=== PATIENT | male | born 1995 | race Caucasian/White ===

== ENCOUNTER 2022-04-23 09:10 | Outpatient (CLI) | payer OTHER, SELFPAY ==
[2022-04-23 09:43] LABS: Hematocrit 44.7 % (37.0-53.0); Hemoglobin* 15.4 gm/dL (13.5-17.5); Mean Corpuscular HGB Conc 35 gm/dL (32-36); Mean Corpuscular Hemoglobin 31 pg (26-34); Mean Corpuscular Volume 89 fL (80-100); Platelet Count* 258 K/uL (140-440); Red Blood Count 5.02 m/uL (4.30-5.90); White Blood Count* 5.46 K/uL (4.50-11.00)
[2022-04-23 09:45] LABS: Slide Review Reflex No
[2022-04-23 14:15] LABS: Chloride* 104 mmol/L (96-114); Sodium* 139 mmol/L (135-149)
[2022-04-23 14:16] LABS: Potassium* 4.9 mmol/L (3.6-5.1)
[2022-04-23 14:18] LABS: Alkaline Phosphatase* 94 U/L (40-150); Aspartate Amino Transferase* 34 U/L (12-35); Bilirubin Total* 0.7 mg/dL (0.1-1.5); Blood Urea Nitrogen* 21 mg/dL (5-24); Carbon Dioxide* 25 mmol/L (20-32); Cholesterol* 178 mg/dL (90-199); Creatinine* 0.9 mg/dL (0.5-1.5); Estimated Glomerular Filt Rate 121 ml/min; Glucose* 100 mg/dL (60-115); Total Protein* 8.1 g/dL (6.0-8.3); Triglycerides* 39 mg/dL (40-149)
[2022-04-23 14:19] LABS: Alanine Aminotransferase* 33 U/L (4-50); Calcium* 9.9 mg/dL (8.4-10.6); HDL Cholesterol* 57 mg/dL (>=40); LDL Cholesterol Calculated 113 mg/dL (<100)
== END 2022-04-23 09:11 | disposition home or self-care (01) ==
PROVIDERS: PCP Physician Assistant Medical; Visit Provider Physician Assistant Medical
DX: Z00.00 Encounter for general adult medical examination without abnormal findings (principal); Z13.6 Encounter for screening for cardiovascular disorders; Z13.29 Encounter for screening for other suspected endocrine disorder
CPT/HCPCS: 80053; 80061; 84443; 85027

== ENCOUNTER 2022-08-29 21:12 | Outpatient (CLI) | payer OTHER, SELFPAY ==
--- NOTE | 2022-09-03 14:40 | W.PM.SLEEP ---
Sleep Study Details Details Interpreting Provider: Galen Gaston MD Date of Sleep Study: 08/29/22 Sleep Study Details: STUDY TYPE:? Home ? BMI:? 34.2 ORDERING PROVIDER:? Get INDICATION:? Concerns about sleep apnea ? SLEEP SUMMARY:? 244 minutes monitored RESPIRATORY SUMMARY:? AHI 5.7, supine AHI 6.8, left lateral 3.9 Low oxygen 86 0.9% of study oxygen less than 90% Snoring 19.9% PERIODIC LIMB MOVEMENTS OF SLEEP:? Not recorded CARDIAC:? 49-100, mean 64 IMPRESSION:? Mild obstructive sleep apnea RECOMMENDATION: If patient has daytime hypersomnolence treatment options would include CPAP AutoSet 4-17, dental appliance and/or airway expansion surgery.
== END 2022-08-29 21:13 | disposition home or self-care (01) ==
LOC: SLEEP 21:13
PROVIDERS: PCP Physician Assistant Medical; Visit Provider Otolaryngology
DX: G47.33 Obstructive sleep apnea (adult) (pediatric) (principal)
CPT/HCPCS: 95806

== ENCOUNTER 2024-03-02 15:15 | Outpatient (RCR) | payer OTHER, SELFPAY | END 2024-06-30 23:59 | disposition home or self-care (01) | PROVIDERS: PCP Physician Assistant Medical; Visit Provider Family Medicine | DX: M54.50 Low back pain, unspecified (principal); G89.29 Other chronic pain; R29.898 Other symptoms and signs involving the musculoskeletal system; R26.89 Other abnormalities of gait and mobility; Z51.89 Encounter for other specified aftercare | CPT/HCPCS: 97110; 97162 ==

== ENCOUNTER 2024-08-06 20:42 | Emergency (ER) | payer BC, SELFPAY ==
--- OUTSIDE RECORDS SUMMARY | 2024-08-06 20:44 | XMS_ITS | Continuity of Care Document ---
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 It does not include entries that were removed or entered in error. Problem Status Onset Date Problem Type Date of Resolution Comments Source Pain in left knee Active 8 Condition DoD Encounter for other administrative examinations Inactive 7 Condition [facility] Erectile Dysfunction ([facility] [id number]) Active Condition [facility] Low Back Pain ([facility] [id number]) Active Condition [facility] visit for: examination of subpopulation Active Condition [facility] Rehabilitation Active Condition DoD pitted keratolysis Active Condition DoD Ankle Swelling (on exam) Active Condition [facility] ankle joint pain Active Condition [facility] ankle sprain Active Condition DoD Allergies, Adverse Reactions, Alerts Combined list of allergies from Department of Defense and Veterans Affairs facilities. It does not include entries that were removed or entered in error. Substance Category Reaction Severity Reaction type Status Date Reported Comments Source No Known Allergies Drug allergy (disorder) active 08/05/2015 [facility] Immunizations Combined list of available immunizations from the Department of Defense and Veterans Affairs facilities. Immunization Series Date Given Administered By Site Reaction Lot Number CVX Code Drug Gas Systems Worker Status Comments Source Influenza, seasonal, injectable 0 2017 UNK 141 Unknown (UNK) comple t ed Influenza , seasonal, injectabl e DoD measles and rubella virus vaccine 0 2016 04 () Not Given measles and rubella virus vaccine [facility] influenza, injectable, quadrivalent, contains preservative 1 2016 EUGENE JULIEN [id number] 158 SmithKline (SKB) complet ed influenza , injectabl e, quadrival ent, contains preservat keo DoD Influenza, injectable, Madin Orlando Canine Kidney, quadrivalent with preservative 0 2016 [id number] 186 SmithKline (SKB) complet ed Influenza , injectabl e, Madin Darcy Canine Kidney, quadrival ent with preservat keo [facility] typhoid Vi capsular polysaccharid e vaccine 1 2016 DINH ZHENG [id number] Sanofi Pasteur (PMC) complet ed typhoid Vi capsular polysacch aride vaccine DoD typhoid vaccine, parenteral, other than acetone-kille d, dried 2 2016 [id number] 41 [employer] ([facility]) complet ed typhoid vaccine, parentera l, other than acetone-k illed, dried DoD influenza, injectable, quadrivalent, contains preservative 1 2015 JACEY GUEVARA [id number] [facility] L[employer] (SKB) complet ed influenza , injectabl e, quadrival ent, contains preservat keo DoD Influenza, seasonal, injectable, preservative free 0 2014 UNK 140 CS [employer] (CSL) complet ed Influenza , seasonal, injectabl e, preservat keo free DoD influenza, live, intranasal, quadrivalent 1 2014 JUDE MEJIAS DO [id number] 149 Aud[employer]ence, Inc. (MED) complet ed influenza , live, intranasa l, quadrival ent DoD varicella virus vaccine 2 2014 CARMELO RDZ [id number] Transcribed (TRS) complet ed varicella virus vaccine DoD typhoid vaccine, unspecified formulation 0 2014 MEET VIVAS [id number] 91 Sanofi Pasteur (PMC) complet ed typhoid vaccine, unspecifi ed formulati on DoD typhoid Vi capsular polysaccharid e vaccine 1 2014 [id number] 101 Sanofi Pasteur (PMC) complet ed typhoid Vi capsular polysacch aride vaccine DoD hepatitis A and hepatitis B vaccine 3 2014 MEET VIVAS [id number] 104 Transcribed (TRS) complet ed hepatitis A and hepatitis B vaccine DoD influenza, live, intranasal, quadrivalent 1 2013 HYACINTH OWENS [id number] 149 [employer]ence, Inc. (MED) complet ed influenza , live, intranasa l, quadrival ent DoD measles and rubella virus vaccine 0 2013 04 () Not Given measles and rubella virus vaccine DoD yellow fever vaccine 0 2013 [id number] 37 Sanofi Pasteur (PMC) complet ed yellow fever vaccine DoD poliovirus vaccine, inactivated 0 2013 [id number] 10 Sanofi Pasteur (PMC) complet ed polioviru s vaccine, inactivat ed DoD hepatitis A and hepatitis B vaccine 2 2013 [id number] 104 SmithKline (SKB) complet ed hepatitis A and hepatitis B vaccine DoD varicella virus vaccine 1 2013 [id number] 21 Merck (MSD) complet ed varicella virus vaccine DoD TDAP 2013 115 complet ed [place] [facility] tetanus and diphtheria toxoids, adsorbed, preservative free, for adult use (2 Lf of tetanus toxoid and 2 Lf of diphtheria toxoid) 0 2013 [id number] 09 [employer]Kline (SKB) complet ed tetanus and diphtheri a toxoids, adsorbed, preservat keo free, for adult use (2 Lf of tetanus toxoid and 2 Lf of diphtheri a toxoid) DoD pneumococcal polysaccharid e vaccine, 23 valent 0 2013 [id number] 33 Merck (MSD) complet ed pneumococ ray polysacch aride vaccine, 23 valent DoD hepatitis A and hepatitis B vaccine 1 2013 [id number] 104 [employer]Kline (SKB) complet ed hepatitis A and hepatitis B vaccine DoD meningococcal polysaccharid e (groups A, C, Y and W-135) diphtheria toxoid conjugate vaccine (MCV4P) 0 2013 [id number] 114 Sanofi Pasteur (PMC) complet ed meningoco ccal polysacch aride (groups A, C, Y and W-135) diphtheri a toxoid conjugate vaccine (MCV4P) DoD influenza, injectable, quadrivalent, contains preservative 0 2013 [id number] 158 Sanofi Pasteur (PMC) complet ed influenza , injectabl e, quadrival ent, contains preservat keo DoD Adenovirus, type 4 and type 7, live, oral 0 2013 [id number] 143 [employer] (BRR) complet ed Adenoviru s, type 4 and type 7, live, oral DoD Encounters Combined list of: 1) Encounters from Department of Veterans Affairs facilities going back up to thelast 18 months. 2) Encounters from the Department of Defense facilities going back up to 280 months. Location Location Details Encounter Type Encounter Number Reason For Visit Attending Provider ADM Date DC Date Status Disposition Source [facility] D Recruit Processin g) OUTPATIENT [id number] Notes Entered by: LANDON QURESHI 23 Jan 2014 0937 ------- ------- ------- ------- -- krystin BRADLEY RAMIRES 01/23 Released w/o Limitations [facility]( CRD Recruit Process ing) [facility] D Optometry ) OUTPATIENT [id number] Notes Entered by: TERRY RAMSEY 26 Jan 2014 1341 ------- ------- ------- ------- -- recruit KAEL Jauregui 01/26 Released w/o Limitations [facility] Optomet ry) [facility] D Recruit Processin g) OUTPATIENT [id number] T6 VACCINE S ARAMIS, CHANDANA 02/05 Released w/o Limitations [facility]( CRD Recruit Process ing) [facility] D Sports Medicine) OUTPATIENT [id number] right ankle/b am STOCKTON, KACIE W 02/12 Released with Work/Duty Limitations [facility]( CRD Sports Medicin e) [facility] D Sports Medicine) OUTPATIENT [id number] atcbam STOCKTON, KACIE W 02/13 Released with Work/Duty Limitations [facility]( [facility]D Sports Medicin e) [facility] D Sports Medicine) OUTPATIENT [id number] atcbam STOCKTON, KACIE W 02/14 Released with Work/Duty Limitations [facility]( CRD Sports Medicin e) [facility] D Recruit Processin g) OUTPATIENT [id number] T22 VACCINE S ARAMIS, CHANDANA 02/23 Released w/o Limitations [facility]( CRD Recruit Process ing) [facility] D Recruit Processin g) OUTPATIENT [id number] [id number] VACCINE S ARAMIS, CHANDANA 03/27 Released w/o Limitations [facility]( CRD Recruit Process ing) [place] DON[place] Clark(31 ABC FP MHP) OUTPATIENT [id number] post FINN Olguin 04/19 Released w/o Limitations [facility] [place]31 ABC FP MHP) [facility] [place](52 ABC FP MHP) OUTPATIENT [id number] campbell JORGENSEN OLI B 05/02 Released w/o Limitations [facility] [place](52 ABC FP MHP) [facility]( [facility] [facility]) OUTPATIENT [id number] Notes Entered by: JOSE OWENS 20 Jun 2014 1338 ------- ------- ------- ------- -- DEEPALI HANLEY 06/20 Released w/o Limitations [facility]( [email or web address]( [place] [facility]) OUTPATIENT [id number] L knee pain SHONDA, KAPIL HEWITT 08/13 Released with Work/Duty Limitations [facility]( [email or web address]) [facility]) OUTPATIENT [id number] Notes Entered by: CARMELO DUFFY 16 Oct 2014 0943 ------- ------- ------- ------- -- MARY JANE Sullivan 10/16 Released w/o Limitations [facility]( [facility]) [facility] Team 1) OUTPATIENT [id number] Notes Entered by: Valdez MARINO 13 Dec 2014 1335 ------- ------- ------- ------- -- HUMERA Malone 12/13 Released w/o Limitations [facility]( [facility] Team 1) [facility]( [facility] [facility]) OUTPATIENT [id number] Notes Entered by: JAYLEN NEWMAN 19 Mar 2015 1421 ------- ------- ------- ------- -- pha-366 MADHU GRAHAM 03/19 Released w/o Limitations [facility]( [facility] [place] [facility]) [facility] OUT[facility] [id number] Notes Entered by: OLAYINKA DEL TORO 05 Aug 2015 0833 ------- ------- ------- ------- -- MARY JANE SULLIVAN 08/05 Released w/o Limitations [facility]( [facility]( [place] [facility]) OUTPATIENT [id number] MS/ [facility] HANNA BLACKBURN 08/20 Released w/o Limitations [facility]( [facility] [place] [facility]) [facility](He aring Conserv-B 65) OUTPATIENT [id number] annual TOLU GARCIA 01/19 Released w/o Limitations [facility]( Hearing Conserv -B65) [facility](Op tometry [facility]) OUTPATIENT [id number] routine eye exam, pt needs new glasses BETITO BAUGH 01/28 Released w/o Limitations [facility]( Optomet ry [facility]) [facility]([place] - Med Home) OUTPATIENT [id number] [facility] / HANNA LAYTON 03/25 Released w/o Limitations [facility]( MAG 29 - Med Home) [facility]([place] - Med Home) OUTPATIENT [id number] Notes Entered by: JACEY GUEVARA 02 Jun 2016 1542 ------- ------- ------- ------- -- ILIR AYALA 06/02 Released w/o Limitations [facility]( MAG 29 - Med Home) [facility]([place] - [facility]) OUTPATIENT [id number]/ sore throat/ cough SHIRARUSTY WERNER 11/06 Sick at Home/Quarter s [facility]( MAG 29 - Med Home) [facility] ) OUTPATIENT [id number] 12/09/19 17 PRE/RIKIALIA SINGH 12/09 Released w/o Limitations [facility]( [facility] ent [facility]) [facility]( [facility] [facility]) OUTPATIENT [id number] Notes Entered by: DINH ZHENG 11 Dec 2016 1437 ------- ------- ------- ------- -- AB LOREDO 12/11 Released w/o Limitations [facility]( [facility] [place] [facility]) [facility](He [facility]-B 65) OUTPATIENT [id number] Notes Entered by: SOULEYMANE GARCIA 01 Jan 2017 1311 ------- ------- ------- ------- -- PRE-DEP TOLU PADILLA 01/01 Released w/o Limitations [facility]( Hearing Conserv -B65) Theater Facility OUTPATIENT [id number] Theater Provider 03/22 Released w/o Limitations Theater Facilit y [facility]([place] - Med Home) OUTPATIENT [id number]/ er follow up/elbo w injury JOSE MANUEL WALLACE 07/12 Released with Work/Duty Limitations [facility]( MAG 29 - Med Home) [facility](Or thopedic Clinic) OUTPATIENT [id number] emergen cy room visit TOLU GRESHAM 07/13 Released with Work/Duty Limitations [facility]( Orthope dic Clinic) [facility]( [facility] [facility]) OUTPATIENT [id number] Notes Entered by: LUNA QURESHI 13 Jul 2017 1053 ------- ------- ------- ------- -- HM-366 / FLU SORAYA CARROLL 07/13 Released w/o Limitations [facility]( [email or web address]) [facility]( [facility] [facility]) OUTPATIENT [id number] Notes Entered by: RALPH BRODY 21 Jul 2017 0653 ------- ------- ------- ------- -- [facility]-366 stitch CARMEN Cantor 07/21 Released w/o Limitations [facility]( [facility] [place] [facility]) [facility]([place] [facility]) OUTPATIENT [id number] [facility]-366 / med TIARA Vo 07/22 Released w/o Limitations [facility]( [facility] - Med [place]) [facility]( [place] [facility]) OUTPATIENT [id number]/ sore throat/ cough/6 [id number] SORAYA CARROLL 12/01 Sick at Home/Quarter s [facility]( [email or web address]) [facility]-B 65) OUTPATIENT [id number] Notes Entered by: SAKINA CAMARGO 04 Jan 2018 0830 ------- ------- ------- ------- -- annual MADALYN VIRGEN 01/04 Released w/o Limitations [facility]( Hearing [facility] -B65) [facility](Sp orts Medicine- [facility]) OUTPATIENT [id number] LEFT KNEE PAIN JUDE TELLO 03/01 Released w/o Limitations [facility]( Sports Medicin e- [facility]) [facility](Sp orts Medicine- [facility]) OUTPATIENT [id number] f/u knee xray JUDE TELLO 03/03 Released w/o Limitations [facility]( Sports Medicin e- [facility]) [facility]) OUTPATIENT [id number]/ MARLEEN TROY 03/31 Released w/o Limitations [facility]( [facility] - [facility]) [facility]) OUTPATIENT [id number] Notes Entered by: Valdez HOUSTON 18 Aug 2018 0811 ------- ------- ------- ------- -- Term MARGIE LOVE 08/18 Released w/o Limitations [facility]( [facility] - Med [place]) OUTPATIENT [id number]/ APR/651 .[phone] 45 EUSEBIO ARMSTRONG 08/19 Released w/o Limitations [facility]( [facility]) [facility](Op tometry [facility]) OUTPATIENT [id number] eye exam BETITO BAUGH 10/11 Released w/o Limitations [facility]( Optomet ry [facility]) Procedures Combined list of: 1) Procedures from Department of Veterans Affairs facilities going back up to thelast 18 months, not all VA non-surgical procedures are included; 2) All procedures from the Department of Defense facilities. Procedure Procedure Type Code Date Perfomer Comments Sourc e INJECTION, PENICILLIN G BENZATHINE, 100,000 UNITS 2013 DoD IMMUNIZATION ADMINISTRATION (INCLUDES PERCUTANEOUS, INTRADERMAL, SUBCUTANEOUS, OR INTRAMUSCULAR INJECTIONS); 1 VACCINE (SINGLE OR COMBINATION VACCINE/TOXOID) 2013 DoD COMPRESSION BANDAGE, ROLL 2013 DoD COMPRESSION BANDAGE, ROLL 2013 DoD COMPRESSION BANDAGE, ROLL 2013 DoD IMMUNIZATION ADMINISTRATION (INCLUDES PERCUTANEOUS, INTRADERMAL, SUBCUTANEOUS, OR INTRAMUSCULAR INJECTIONS); 1 VACCINE (SINGLE OR COMBINATION VACCINE/TOXOID) 2013 [facility] FITTING OF SPECTACLES, EXCEPT FOR APHAKIA; MONOFOCAL 2013 [facility] THERAPEUTIC, PROPHYLACTIC, OR DIAGNOSTIC INJECTION (SPECIFY SUBSTANCE OR DRUG); SUBCUTANEOUS OR INTRAMUSCULAR 2013 [facility] OPHTHALMOLOGICAL SERVICES: MEDICAL EXAMINATION AND EVALUATION WITH INITIATION OF DIAGNOSTIC AND TREATMENT PROGRAM; COMPREHENSIVE, NEW PATIENT, 1 OR MORE VISITS 2018 [facility] HEALTH&BEHAV ASSESSMENT (EG, HEALTH-FOC CLINICAL INTERVIEW, BEHAVIORAL OBSERVATIONS, PSYCHOPHYSICOLOGICAL MONITOR, HEALTH-ORIENT QUESTIONNAIRES), EA 15 MIN [id number] W THE PATIENT; INIT ASSESSMENT 2018 [facility] PATIENT EDUCATION, NOT OTHERWISE CLASSIFIED, NON-PHYSICIAN PROVIDER, INDIVIDUAL, PER SESSION 2018 [facility] SCREENING TEST OF VISUAL ACUITY, QUANTITATIVE, BILATERAL 2017 [facility] RE-EVAL,ATHLETIC TRAINING ESTAB PLAN OF CARE REQ:ASSES,CUR FUNC STAT WHEN DOC CHANGE;REV PLAN OF CARE,STAND,ASSESS INSTR &/RAMSEY ASSESS,FUNC OUTCOME W UPDATE,20 MIN UYAR-[id number] W THE PATIENT &/FAMILY 2017 [facility] PURE TONE AUDIOMETRY (THRESHOLD); AIR ONLY 2017 [facility] INFLUENZA VIRUS VACCINE, QUADRIVALENT (IIV4), SPLIT VIRUS, 0.5 ML DOSAGE, FOR INTRAMUSCULAR USE 2016 [facility] SIMPLE REPAIR OF SUPERFICIAL WOUNDS OF SCALP, NECK, AXILLAE, EXTERNAL GENITALIA, TRUNK AND/OR EXTREMITIES (INCLUDING HANDS AND FEET); 2.5 CM OR LESS 2016 [facility] PURE TONE AUDIOMETRY (THRESHOLD); AIR ONLY 2016 [facility] TYPHOID VACCINE, CAPSULAR POLYSACCHARIDE (VICPS), FOR INTRAMUSCULAR USE 2016 [facility] NEUROPSYC TSTNG(EG,TARA-REINA N NEUROPSYC BARBARA,AIMEE MEMRY SCALES&[place] CARD SORT TST),W QUALIFIED HEALTH CARE PROFSIONAL INTERP&RPT,ADMINISTERED FRUIT HARVEST MACHINE OPERATOR,/HR,TECHNICI MAISHA AZEVEDO,FCE-2-FCE 2016 [facility] IMMUNIZATION ADMINISTRATION (INCLUDES PERCUTANEOUS, INTRADERMAL, SUBCUTANEOUS, OR INTRAMUSCULAR INJECTIONS); 1 VACCINE (SINGLE OR COMBINATION VACCINE/TOXOID) 2015 [facility] OPHTHALMOLOGICAL SERVICES: MEDICAL EXAMINATION AND EVALUATION WITH INITIATION OF DIAGNOSTIC AND TREATMENT PROGRAM; COMPREHENSIVE, NEW PATIENT, 1 OR MORE VISITS 2015 [facility] PURE TONE AUDIOMETRY (THRESHOLD); AIR ONLY 2015 [facility] IMMUNIZATION ADMINISTRATION BY INTRANASAL OR ORAL ROUTE; 1 VACCINE (SINGLE OR COMBINATION VACCINE/TOXOID) 2014 [facility] VARICELLA VIRUS VACCINE (JAMESON), LIVE, FOR SUBCUTANEOUS USE 2014 [facility] IMMUNIZATION ADMINISTRATION BY INTRANASAL OR ORAL ROUTE; 1 VACCINE (SINGLE OR COMBINATION VACCINE/TOXOID) 2013 [facility] Ophthalmological New Patient Start Comprehensive Care Ophthalmological New Patient Start Comprehensive Care 46460 2018 BETITO BAUGH Spectacles Services Fitting Monofocal Except For Aphakia Spectacles Services Fitting Monofocal Except For Aphakia 84936 2018 BETITO BAUGH Determination Of Refractive State Determination Of Refractive State 05691 2018 BETITO BAUGH Prescription And Fitting Bilateral Corneal Lenses (Not For Aphakia) Prescription And Fitting Bilateral Corneal Lenses (Not For Aphakia) 75966 2018 BETITO BAUGH Health And Behav A e mt Each 15 Min Initial A e ment Health And Behav Assessmt Each 15 Min Initial Assessment 49748 2018 JOE AC Psychometric Emotional / Behavioral A e ment Psychometric Emotional / Behavioral Assessment 55738 2018 JOE AC Threshold Audiogram (Pure Tone) Automated Threshold Audiogram (Pure Tone) Automated 0208T 2018 MARGIE HARMON [facility] Patient education, not otherwise cla ified, non-physician provider, individual, per se ion 2018 MARGIE HARMON [facility] Preventive Medicine Administration Of Health Risk Questionnaire Patient-Focused Preventive Medicine Administration Of Health Risk Questionnaire Patient-Focused 11442 2017 VINCE ZUNIGA Screening Test Of Visual Acuity, Quantitative, Bilateral Screening Test Of Visual Acuity, Quantitative, Bilateral 05676 2017 VINCE ZUNIGA Athletic Training Re-evaluation Athletic Training Re-evaluation 35171 2017 JUDE TELLO [facility] Athletic Training Evaluation Low Complexity Athletic Training Evaluation Low Complexity 38275 2017 JUDE TELLO [facility] Threshold Audiogram (Pure Tone) Threshold Audiogram (Pure Tone) 55045 2017 MADALYN VIRGEN [facility] Influenza Split Virus Vaccine IM With Preservative Quadrivalent 0.50mL Dosage Influenza Split Virus Vaccine IM With Preservative Quadrivalent 0.50mL Dosage 09096 2016 EUGENE JULIEN Influenza, injectable, quadrivalent; Series #: 1; .5 mL; IM; Left Arm; Mfg: [employer]Kline; Lot: [id number]; VIS given (Britney: 03/22/2015). DoD Immunization Administration By Injection, One Vaccine Immunization Administration By Injection, One Vaccine 70025 2016 EUGENE JULIEN Threshold Audiogram (Pure Tone) Threshold Audiogram (Pure Tone) 89277 2016 TOLU GARCIA Typhoid Vaccine Vi Capsular Polysaccharide, For Intramus Use Typhoid Vaccine Vi Capsular Polysaccharide, For Intramus Use 74679 2016 DINH ZHENG Typhoid, ViCPs; Series #: 1; .5 mL; IM; Left Arm; Mfg: Sanofi Pasteur; Lot: [id number]. DoD Immunization Administration By Injection, One Vaccine Immunization Administration By Injection, One Vaccine 60780 2016 DINH ZHENG Psychometric Neuropsych Testing Battery Admin By [employer] Psychometric Neuropsych Testing Battery Admin By [employer] 87481 2016 QUINTON BERNARD [facility] Influenza Split Virus Vaccine IM With Preservative Quadrivalent 0.50mL Dosage 2015 JACEY GUEVARA Influenza, injectable, quadrivalent; Series #: 1; .5 mL; IM; Left Arm; Mfg: [employer]Valutaoine; Lot: [id number]; VIS given (Britney: 03/22/2015). DoD Immunization Administration By Injection, One Vaccine Immunization Administration By Injection, One Vaccine 81734 2015 JACEY GUEVARA [facility] Ophthalmological New Patient Start Comprehensive Care Ophthalmological New Patient Start Comprehensive Care 98763 2015 BETITO BAUGH Determination Of Refractive State Determination Of Refractive State 11569 2015 BETITO BAUGH Spectacles Services Fitting Monofocal Except For Aphakia Spectacles Services Fitting Monofocal Except For Aphakia 53490 2015 BETITO BAUGH [facility] Threshold Audiogram (Pure Tone) Threshold Audiogram (Pure Tone) 07515 2015 TOLU GARCIA [facility] Influenza Virus Vaccine Live Attenuated Intranasal Quadrivalent Influenza Virus Vaccine Live Attenuated Intranasal Quadrivalent 81093 2014 JUDE CHOPRA Influenza, live, intranasal, quadrivalent; Series #: 1; .2 mL; IN; Intranasal; Mfg: [employer].; Lot: [id number]; VIS given (Britney: 03/22/2015). DoD Immunization Admin By Intranasal / Oral Route One Vaccine Immunization Admin By Intranasal / Oral Route One Vaccine 19470 2014 JUDE CHOPRA [facility] Vaccines Viral Varicella (Active) Vaccines Viral Varicella (Active) 31905 2014 CARMELO RDZ [facility] Influenza Virus Vaccine Live Attenuated Intranasal Quadrivalent Influenza Virus Vaccine Live Attenuated Intranasal Quadrivalent 12956 2013 HYACINTH OWNES Influenza, Live, Intranasal Quadrivalent (FluMist); Series #: 1; .2 mL; IN; Intranasal; Mfg: [employer].; Lot: [id number]; VIS given (Britney: 03/10/13). [facility] Immunization Admin By Intranasal / Oral Route One Vaccine Immunization Admin By Intranasal / Oral Route One Vaccine 55752 2013 HYACINTH OWENS [facility] Screening to determine the appropriatene of consideration of an individual for participation in a specified program, project or treatment protocol, per encounter 2013 ERLINDA DUMAS Physician Supervised Injection Intramuscular Antibiotic Physician Supervised Injection Intramuscular Antibiotic 25386 2013 ERLINDA DUMAS Vaccines Viral Yellow Fever Vaccines Viral Yellow Fever 44864 2013 CHRISTOPHER ARITA Varicella (Active) Second Vaccination Varicella (Active) Second Vaccination 51611 2013 CHRISTOPHER ARITA Physician Supervised Injection Intramuscular Antibiotic Physician Supervised Injection Intramuscular Antibiotic 80777 2013 CHRISTOPHER ARITA Immunization Administration By Injection, One Vaccine Immunization Administration By Injection, One Vaccine 29643 2013 CHRISTOPHER ARITA Immunization Administration By Injection, Each Additional Vaccine Immunization Administration By Injection, Each Additional Vaccine 23321 2013 CHRISTOPHER ARITA [facility] Injection, penicillin g benzathine, 100,000 units 2013 CHRISTOPHER ARITA [facility] Vaccines Viral Polio, Inactivated Vaccines Viral Polio, Inactivated 48542 2013 SETH MONTGOMERY Injection, penicillin g benzathine, 100,000 units 2013 SETH MONTGOMERY Physician Supervised Injection Intramuscular Physician Supervised Injection Intramuscular 54736 2013 SETH MONTGOMERY Immunization Administration By Injection, Each Additional Vaccine Immunization Administration By Injection, Each Additional Vaccine 70705 2013 SETH MONTGOMERY Immunization Administration By Injection, One Vaccine Immunization Administration By Injection, One Vaccine 99710 2013 SETH MONTGOMERY Hepatitis A And Hepatitis B (Intramuscular Use) Adult Dosage Hepatitis A And Hepatitis B (Intramuscular Use) Adult Dosage 22350 2013 SETH MONTGOMERY Compre ion bandage, roll 2013 DEWAYNE BLAKE APPLIED SHELBY WRAP FOR EDEMA CONTROL DoD Modalities Cryotherapy Cold Packs Modalities Cryotherapy Cold Packs 09884 2013 DEWAYNE BLAKE A isted Exercises For ROM Assisted [place]ercises [place] ROM 45518 2013 DEWAYNE BLAKE Compre ion bandage, roll 2013 DEWAYNE BLAKE APPLIED SHELBY WRAP FOR EDEMA CONTROL DoD Modalities Cryotherapy Cold Packs Modalities Cryotherapy Cold Packs 64363 2013 DEWAYNE BLAKE isted Exercises For ROM Assisted Exercises [place] ROM 15959 2013 DEWAYNE BLAKE Compre ion bandage, roll 2013 DEWAYNE BLAKE APPLIED SHELBY WRAP FOR EDEMA CONTROL DoD Modalities Cryotherapy Cold Packs Modalities Cryotherapy Cold Packs 70611 2013 DEWAYNE BLAKE isted Exercises For ROM Assisted Exercises [place] ROM 35529 2013 DEWAYNE BLAKE Vaccines Viral Varicella (Active) Vaccines Viral Varicella (Active) 03639 2013 KRISTIN LORENZO Immunization Administration By Injection, One Vaccine Immunization Administration By Injection, One Vaccine 56245 2013 MAURA KRISTIN [place] Spectacles Services Fitting Monofocal Except For Aphakia Spectacles Services Fitting Monofocal Except For Aphakia 94994 2013 SMITA RAMSEY [facility] Ophthalmological New Patient Start Intermediate Level Care Ophthalmological New Patient Start Intermediate Level Care 73927 2013 SMITA RAMSEY [facility] Pneumococcal Polysaccharide Vaccine 23 Valent Intramuscular Pneumococcal Polysaccharide Vaccine 23 Valent Intramuscular 96921 2013 [facility] Tdap Vaccine Seven Years Of Age And Above Tdap Vaccine Seven Years Of Age And Above 79455 2013 [facility] Skin Test Anergy Tuberculin Intradermal Skin Test Anergy Tuberculin Intradermal 86088 2013 [facility] Venipuncture Venipuncture 85719 2013 [facility] Collection Of Capillary Blood Specimen Collection Of Capillary Blood Specimen 86634 2013 [facility] Injection, penicillin g benzathine, 100,000 units 2013 [facility] Physician Supervised Injection Intramuscular Physician Supervised Injection Intramuscular 53763 2013 [facility] Immunization Administration By Injection, One Vaccine Immunization Administration By Injection, One Vaccine 05147 2013 [facility] Meningococcal Polysaccharide Vaccine Meningococcal Polysaccharide Vaccine 59262 2013 [facility] Immunization Administration By Injection, Each Additional Vaccine Immunization Administration By Injection, Each Additional Vaccine 09022 2013 [facility] Hepatitis A And Hepatitis B (Intramuscular Use) Adult Dosage Hepatitis A And Hepatitis B (Intramuscular Use) Adult Dosage 08990 2013 [facility] Social History Combined list of available smoking, tobacco, and other social history from Department of Defense and Veterans Affairs facilities. Social History Type Response Date Comment Sourc e This section is an empty social history section. [employer]
[2024-08-06 20:46] VITALS: BP 127/84; PULSE 98; RESP 20; TEMP 36.1; O2SAT 99; BMI 32.5
--- NOTE | 2024-08-06 21:07 | ED.NAVMDI ---
HPI - Nausea/Vomiting/Diarrhea General Chief complaint: Nausea/Vomiting Stated complaint: Vomiting, Diarrhea for past 9 hours Time Seen by Provider: 08/06/24 20:57 History of Present Illness HPI Narrative: This 29-year-old male comes in reporting nausea, vomiting, and diarrhea that has been going on most of this day. He states he is very thirsty a but seems to have recurrent symptoms. He does not report any fevers. He does arrive here with normal vital signs. Related Data Previous Rx's ?Medication ?Instructions ?Recorded mupirocin 2 % topical ointment 1 applic topical TID #15 grams 04/23/22 azithromycin 250 mg tablet See Rx Instructions PO .COMPLEX #6 10/28/22 tabs benzonatate 100 mg capsule 100 mg PO TID PRN cough #30 caps 10/28/22 Allergies Allergy/AdvReac Type Severity Reaction Status Date / Time No Known Allergy Allergy Unknown Unknown Uncoded 10/28/22 09:17 Review of Systems Status of ROS: Reports: 10 or more systems reviewed and unremarkable except as noted in History and below Narrative: Constitutional: No fevers, no weight gain or loss. Eyes: No discharge. No vision changes. HENT: No congestion, no sore throat, no ear pain. Cardiovascular: No chest pain, no palpitations. Respiratory: No shortness of breath, no wheezes, no cough. Gastrointestinal: Nausea, vomiting, and diarrhea as described above. Genitourinary: No dysuria, no hematuria. Musculoskeletal: Normal range of motion. Skin: No rashes, no pruritis. Neurological: No dizziness, weakness, sensory change, speech change. Endo/Heme/Allergies: No bruising or bleeding. No polydipsia. Pysch: no suicidality, no anxiety, no insomnia. All other systems reviewed and are negative. [facility] Medical History (Updated 08/06/24 @ 22:29 by Carl Cruz MD) Bronchitis ?J40 - Bronchitis, not specified as acute or chronic (ICD-10) Sinusitis ?J32.9 - Chronic sinusitis, unspecified (ICD-10) Surgical History (Updated 04/01/22 @ 12:52 by Radha Ta ~ PSR) History of third molar tooth extraction ?K08.409 - Partial loss of teeth, unspecified cause, unspecified class (ICD-10) History of bilateral breast reduction surgery ?Z98.890 - Other specified postprocedural states (ICD-10) Family History (Updated 04/01/22 @ 13:00 by Radha Ta ~ PSR) Father Brain tumor Coronary artery disease Diabetes Paternal Grandfather Coronary artery disease Social History (Updated 04/01/22 @ 13:02 by Radha Ta ~ PSR) Narrative: Non smoker Social drinker Chewing tabacco use Does not use illicit drugs Smoking Status: Never smoker Exam Narrative: Exam Narrative: Constitutional: Well-developed, well-nourished, no acute distress. HEENT: Normocephalic, atraumatic. Neck: Normal range of motion. Nontender. Supple. Heart: Regular. No murmurs. Normal rate. Intact distal pulses. Lungs: Clear to auscultation. No chest discomfort. No wheezes, rhonchi, or rales. Abdomen: Normal bowel sounds. Nontender. No rebound tenderness. Genitalia: Deferred. Back: No midline tenderness. Normal range of motion. Extremities: Normal range of motion. No injury. Skin: Intact. No rash. Warm. No erythema or pallor. Neurologic: No altered sensation. No weakness. Alert and oriented. Psychiatric: No suicidality. No anxiety or depression. No insomnia. Nursing notes and vitals signs are reviewed. Const: Vital Signs, click to edit/add: Vital Signs - 24 hr 08/06/24 20:46 Temperature 97.0 F L Pulse Rate [Left P ulse Oximeter] 98 Respiratory Rate 20 Blood Pressure [Ri ght Upper Arm] 127/84 Pulse Oximetry 99 Oxygen Delivery Me thod Room Air Course Vital Signs Vital signs: Initial Vital Signs Temperature 97.0 F L 08/06/24 20:46 Temperature Source Temporal Artery Scan 08/06/24 20:46 Pulse Rate 98 08/06/24 20:46 Pulse Rhythm Regular 08/06/24 20:46 Respiratory Rate 20 08/06/24 20:46 Blood Pressure 127/84 08/06/24 20:46 Blood Pressure Mean 98 08/06/24 20:46 Blood Pressure Position Sitting 08/06/24 20:46 Pulse Oximetry 99 08/06/24 20:46 Oxygen Delivery Method Room Air 08/06/24 20:46 Vital Signs Temperature 97.0 F L 08/06/24 20:46 Pulse Rate 98 08/06/24 20:46 Respiratory Rate 20 08/06/24 20:46 Blood Pressure 127/84 08/06/24 20:46 Pulse Oximetry 99 08/06/24 20:46 Oxygen Delivery Method Room Air 08/06/24 20:46 Temperature 97.0 F L 08/06/24 20:46 Pulse Rate 98 08/06/24 20:46 Respiratory Rate 20 08/06/24 20:46 Blood Pressure 127/84 08/06/24 20:46 Pulse Oximetry 99 08/06/24 20:46 Oxygen Delivery Method Room Air 08/06/24 20:46 Medications Administered Medications: Generic Name Dose Route Start Last Admin Trade Name Freq PRN Reason Stop Dose Admin Sodium Chloride 500 mls @ 500 mls/hr 08/06/24 21:05 08/06/24 21:30 0.9 % Sodium Chloride 500 Ml IV 08/06/24 22:04 500 mls/hr .Q1H ONE Administration Sodium Chloride 500 mls @ 500 mls/hr 08/06/24 22:01 08/06/24 22:23 0.9 % Sodium Chloride 500 Ml IV 08/06/24 23:00 500 mls/hr .Q1H ONE Administration Ondansetron HCl 4 mg 08/06/24 21:05 08/06/24 21:30 Ondansetron 2 Mg/Ml Inj IVP 08/06/24 21:06 4 mg ONCE ONE Administration MDM - Nausea/Vomiting/Diarrhea MDM Narrative Medical decision making narrative: This patient comes in with vomiting and diarrhea today. He does arrive with normal vital signs. I did place an IV and he received 2 500 mL doses of normal saline along with Zofran 4 mg. Labs are acquired and these returned with reassuring findings. The patient states that he is feeling better and does not have any nausea. He is okay to be discharged home. I did provide an [facility] prescription for Zofran. Lab Data Labs: Lab Results 08/06/24 Range/Units 19:32 WBC 11.45 H (4.50-11.00) K/uL RBC 5.41 (4.30-5.90) m/uL Hgb 16.3 (13.5-17.5) gm/dL Hct 47.4 (37.0-53.0) % MCV 88 (80-100) fL MCH 30 (26-34) pg MCHC 34 (32-36) gm/dL RDW Coeff of Latrice 12.2 (11.5-15.5) % Plt Count 262 (140-440) K/uL Neut % (Auto) 91.2 H (42.0-72.0) % Lymph % (Auto) 3.3 L (20-44) % Jefferson % (Auto) 4.4 (0.0-11.0) % Eos % (Auto) 0.8 (0.0-7.0) % Baso % (Auto) 0.2 (0.0-3.0) % Neut # (Auto) 10.40 H (1.7-7.0) K/uL Lymph # (Auto) 0.40 L (0.90-2.90) K/uL Jefferson # (Auto) 0.50 (0.00-0.90) K/UL Eos # (Auto) 0.10 (0.00-0.50) K/uL Baso # (Auto) 0.00 (0.00-0.30) K/uL Abs Immat Gran (auto) 0.00 (0.00-0.30) K/uL Imm/Tot Granulo (auto) 0.1 % Sodium 139 (135-149) mmol/L Potassium 4.2 (3.6-5.1) mmol/L Chloride 103 (96-114) mmol/L Carbon Dioxide 26 (20-32) mmol/L Anion Gap 10 (7-15) mEq/L BUN 19 (5-24) mg/dL Creatinine 1.0 (0.5-1.5) mg/dL Estimated Creat Clear 130.27 Estimated GFR 104 ml/min Glucose 123 H (60-115) mg/dL Calcium 9.8 (8.4-10.6) mg/dL Discharge Plan Discharge Clinical Impression: Gastroenteritis Patient Disposition: Home, Self-Care Condition: Improved Additional Instructions: Use Zofran as needed and directed for nausea symptoms. Take frequent sips of fluids an increase diet otherwise as tolerated. Follow up with MD return if worsening. Prescriptions: No Action azithromycin 250 mg tablet See Rx Instructions PO .COMPLEX Qty: 6 0RF Rx Instructions: For 250 mg dose pack: take 500 mg today (day 1), then 250 mg for 4 days (days 2-5) PO benzonatate 100 mg capsule 100 mg PO TID PRN (Reason: cough) Qty: 30 0RF mupirocin 2 % ointment 1 applic topical TID Qty: 15 0RF Follow Up/Referrals: Niraj Sylvester PA-C [Physician Regional Transfer Liaison] - Stand Alone Forms: [facility] Info Instructions
--- OUTSIDE RECORDS SUMMARY | 2024-08-06 21:17 | XMS_ITS | Continuity of Care Document ---
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 It does not include entries that were removed or entered in error. Problem Status Onset Date Problem Type Date of Resolution Comments Source Pain in left knee Active 8 Condition DoD Encounter for other administrative examinations Inactive 7 Condition [facility] Erectile Dysfunction ([facility] [id number]) Active Condition [facility] Low Back Pain ([facility] [id number]) Active Condition [facility] visit for: examination of subpopulation Active Condition [facility] Rehabilitation Active Condition DoD pitted keratolysis Active Condition DoD Ankle Swelling (on exam) Active Condition [facility] ankle joint pain Active Condition [facility] ankle sprain Active Condition DoD Allergies, Adverse Reactions, Alerts Combined list of allergies from Department of Defense and Veterans Affairs facilities. It does not include entries that were removed or entered in error. Substance Category Reaction Severity Reaction type Status Date Reported Comments Source No Known Allergies Drug allergy (disorder) active 08/05/2015 [facility] Immunizations Combined list of available immunizations from the Department of Defense and Veterans Affairs facilities. Immunization Series Date Given Administered By Site Reaction Lot Number CVX Code Drug Medication Aide Status Comments Source Influenza, seasonal, injectable 0 2017 UNK 141 Unknown (UNK) comple t ed Influenza , seasonal, injectabl e DoD measles and rubella virus vaccine 0 2016 04 () Not Given measles and rubella virus vaccine [facility] influenza, injectable, quadrivalent, contains preservative 1 2016 EUGENE JULIEN [id number] 158 SmithKline (SKB) complet ed influenza , injectabl e, quadrival ent, contains preservat keo DoD Influenza, injectable, Madin [place] Canine Kidney, quadrivalent with preservative 0 2016 [id number] 186 SmithKline (SKB) complet ed Influenza , injectabl e, Madin [place] Canine Kidney, quadrival ent with preservat keo [facility] typhoid Vi capsular polysaccharid e vaccine 1 2016 DINH ZHENG [id number] 101 Sanofi Pasteur (PMC) complet ed typhoid Vi capsular polysacch aride vaccine DoD typhoid vaccine, parenteral, other than acetone-kille d, dried 2 2016 [id number] 41 [employer] ([facility]) complet ed typhoid vaccine, parentera l, other than acetone-k illed, dried DoD influenza, injectable, quadrivalent, contains preservative 1 2015 JACEY GUEVARA [id number] [facility] [employer] (SKB) complet ed influenza , injectabl e, quadrival ent, contains preservat keo DoD Influenza, seasonal, injectable, preservative free 0 2014 UNK 140 CS [employer] (CSL) complet ed Influenza , seasonal, injectabl e, preservat keo free DoD influenza, live, intranasal, quadrivalent 1 2014 JUDE MEJIAS DO [id number] 149 Sterio.me[employer] Inc. (MED) complet ed influenza , live, intranasa l, quadrival ent DoD varicella virus vaccine 2 2014 CARMELO RDZ [id number] Transcribed (TRS) complet ed varicella virus [...] live, intranasal, quadrivalent 1 2013 HYACINTH OWENS [id number] 149 [employer]. (MED) complet ed influenza , live, intranasa l, quadrival ent DoD measles and rubella virus vaccine 0 2013 04 () Not Given measles and rubella virus vaccine DoD yellow fever vaccine 0 2013 [id number] 37 Sanofi Pasteur (PMC) complet ed yellow fever vaccine DoD poliovirus vaccine, inactivated 0 2013 J1561 10 Sanofi Pasteur (PMC) complet ed polioviru s vaccine, inactivat ed DoD hepatitis A and hepatitis B vaccine 2 2013 [id number] 104 SmithKline (SKB) complet ed hepatitis A and hepatitis B vaccine DoD varicella virus vaccine 1 2013 [id number] 21 Merck (MSD) complet ed varicella virus vaccine DoD TDAP 2013 115 complet ed [facility] tetanus and diphtheria toxoids, adsorbed, preservative free, for adult use (2 Lf of tetanus toxoid and 2 Lf of diphtheria toxoid) 0 2013 [id number] 09 [employer]Kline (SKB) complet ed tetanus and diphtheri a toxoids, adsorbed, preservat keo free, for adult use (2 Lf of tetanus toxoid and 2 Lf of diphtheri a toxoid) DoD pneumococcal polysaccharid e vaccine, 23 valent 0 2013 [id number] 33 Merck (MSD) complet ed pneumococ ray polysacch aride vaccine, 23 valent DoD hepatitis A and hepatitis B vaccine 1 2013 B9349 104 [employer]Kline (SKB) complet ed hepatitis A and hepatitis B vaccine DoD meningococcal polysaccharid e (groups A, C, Y and W-135) diphtheria toxoid conjugate vaccine (MCV4P) 0 2013 [id number] 114 Sanofi Pasteur (PMC) complet ed meningoco ccal polysacch aride (groups A, C, Y and W-135) diphtheri a toxoid conjugate vaccine (MCV4P) DoD influenza, injectable, quadrivalent, contains preservative 0 2013 [id number] 158 Sanofi Pasteur (PMC) complet ed influenza , injectabl e, quadrival ent, contains preservat keo DoD Adenovirus, type 4 and type 7, live, oral 0 2013 [id number] 143 New Laboratories (BRR) complet ed [...] ADM Date DC Date Status Disposition Source [facility] D Recruit Processin g) OUTPATIENT [id number] Notes Entered by: LANDON QURESHI 23 Jan 2014 0937 ------- ------- ------- ------- -- krystin BRADLEY RAMIRES 01/23 Released w/o Limitations [facility]( CRD Recruit Process ing) [facility] D Optometry ) OUTPATIENT [id number] Notes Entered by: TERRY RAMSEY 26 Jan 2014 1341 ------- ------- ------- ------- -- recruit KAEL Jauregui 01/26 Released w/o Limitations [facility] Optomet ry) [facility] D Recruit Processin g) OUTPATIENT [id number] T6 VACCINE S ARAMIS, CHANDANA 02/05 Released w/o Limitations [facility]( CRD Recruit Process ing) [facility] D Sports Medicine) OUTPATIENT [id number] right ankle/b am STOCKTON, KACIE W 02/12 Released with Work/Duty Limitations [facility]( CRD Sports Medicin e) [facility] D Sports Medicine) OUTPATIENT [id number] atcbam STOCKTON, KACIE W 02/13 Released with Work/Duty Limitations [facility]( CRD Sports Medicin e) [facility] D Sports Medicine) OUTPATIENT [id number] atcbam STOCKTON, KACIE W 02/14 Released with Work/Duty Limitations [facility]( CRD Sports Medicin e) [facility] D Recruit Processin g) OUTPATIENT [id number] T22 VACCINE S ARAMIS, CHANDANA 02/23 Released w/o Limitations [facility]( CRD Recruit Process ing) [facility] D Recruit Processin g) OUTPATIENT [id number] T48 VACCINE S ARAMIS, CHANDANA 03/27 Released w/o Limitations [facility]( CRD Recruit Process ing) [place] DONNELL Clark(31 ABC FP MHP) OUTPATIENT [id number] post FINN Olguin 04/19 Released w/o Limitations [facility] [place]31 ABC FP MHP) [facility] [place](52 ABC FP MHP) OUTPATIENT [id number] campbell JORGENSEN OLI B 05/02 Released w/o Limitations [facility] [place](52 ABC FP MHP) [facility]( [place] [facility]) OUTPATIENT [id number] Notes Entered by: JOSE OWENS 20 Jun 2014 1338 ------- ------- ------- ------- -- DEEPALI HANLEY 06/20 Released w/o Limitations [facility]( [facility]( [place] [facility]) OUTPATIENT [id number] L knee pain SHONDA, KAPIL HEWITT 08/13 Released with Work/Duty Limitations [facility]( [facility]) [facility]) OUTPATIENT [id number] Notes Entered by: CARMELO DUFFY 16 Oct 2014 0943 ------- ------- ------- ------- -- MARY JANE Sullivan 10/16 Released w/o Limitations [facility]( [facility]) [facility] Team 1) OUTPATIENT [id number] Notes Entered by: Valdez MARINO 13 Dec 2014 1335 ------- ------- ------- ------- -- HUMERA Malone 12/13 Released w/o Limitations [facility]( [facility] Team 1) [facility]( [place] [facility]) OUTPATIENT [id number] Notes Entered by: JAYLEN NEWMAN 19 Mar 2015 1421 ------- ------- ------- ------- -- pha-366 MADHU GRAHAM 03/19 Released w/o Limitations [facility]( [facility] [place] - Med Home) [facility] [id number] Notes Entered by: OLAYINKA DEL TORO 05 Aug 2015 0833 ------- ------- ------- ------- -- MARY JANE SULLIVAN 08/05 Released w/o Limitations [facility]( [facility]) [facility]( [place] [facility]) OUTPATIENT [id number] MS/ [facility] HANNA BLACKBURN 08/20 Released w/o Limitations [facility]( [facility] [place] [facility] Med Home) [facility](He aring Conserv-B 65) OUTPATIENT [id number] annual TOLU GARCIA 01/19 Released w/o Limitations [facility]( Hearing [facility] -B65) [facility](Op tometry [facility]) OUTPATIENT [id number] routine eye exam, pt needs new glasses BETITO BAUGH 01/28 Released w/o Limitations [facility]( Optomet ry [facility]AS) [facility](MA G 29 - Med Home) OUTPATIENT [id number] [facility] / HANNA LAYTON 03/25 Released w/o Limitations [facility]( MAG 29 - Med Home) [facility](MA G 29 - Med Home) OUTPATIENT [id number] Notes Entered by: JACEY GUEVARA 02 Jun 2016 1542 ------- ------- ------- ------- -- ILIR AYALA 06/02 Released w/o Limitations [facility]( MAG 29 - Med Home) [facility](MA G 29 - Med Home) OUTPATIENT [id number]/ sore throat/ cough SHIRARUSTY WERNER 11/06 Sick at Home/Quarter s [facility]( MAG 29 - Med Home) [facility] ) OUTPATIENT [id number] 12/09/19 17 PRE/RIKIALIA SINGH 12/09 Released w/o Limitations [facility]( [facility] ent [facility]) [facility]( [place] [facility]) OUTPATIENT [id number] Notes Entered by: DINH ZHENG 11 Dec 2016 1437 ------- ------- ------- ------- -- AB LOREDO 12/11 Released w/o Limitations [facility]( [facility] [place] [facility]) [facility]-B 65) OUTPATIENT [id number] Notes Entered by: SOULEYMANE GARCIA 01 Jan 2017 1311 ------- ------- ------- ------- -- PRE-DEP TOLU PADILLA 01/01 Released w/o Limitations [facility]( [facility] -B65) Theater Facility OUTPATIENT [id number] Theater Provider 03/22 Released w/o Limitations Theater Facilit y [facility](MA G 29 - Med Home) OUTPATIENT [id number]/ er follow up/elbo w injury JOSE MANUEL WALLACE 07/12 Released with Work/Duty Limitations [facility]( MAG 29 - Med Home) [facility](Or thopedic Clinic) OUTPATIENT [id number] emergen cy room visit TOLU GRESHAM 07/13 Released with Work/Duty Limitations [facility]( Orthope dic Clinic) [facility]( [place] [facility]) OUTPATIENT [id number] Notes Entered by: LUNA QURESHI 13 Jul 2017 1053 ------- ------- ------- ------- -- HM-366 / FLU SORAYA CARROLL 07/13 Released w/o Limitations [facility]( [facility]) [facility]( [place] [facility]) OUTPATIENT [id number] Notes Entered by: RALPH BRODY 21 Jul 2017 0653 ------- ------- ------- ------- -- [facility]-366 stitch CARMEN Cantor 07/21 Released w/o Limitations [facility]( [facility] [place] [facility]) [facility](ND G 26 - [facility]) OUTPATIENT [id number] [facility]-366 / med TIARA Vo 07/22 Released w/o Limitations [facility]( [facility] 26 - Med [place]) [facility]( [place] [facility]) OUTPATIENT [id number]/ sore throat/ cough/6 [id number] SORAYA CARROLL 12/01 Sick at Home/Quarter s [facility]( [facility]) [facility]-B 65) OUTPATIENT [id number] Notes Entered by: SAKINA CAMARGO 04 Jan 2018 0830 ------- ------- ------- ------- -- annual MADALYN VIRGEN 01/04 Released w/o Limitations [facility]( [facility] -B65) [facility](Sp orts Medicine- [facility]) OUTPATIENT [id number] LEFT KNEE PAIN JUDE TELLO 03/01 Released w/o Limitations [facility]( Sports Medicin e- [facility]) [facility](Sp orts Medicine- [facility]) OUTPATIENT [id number] f/u knee xray JUDE TELLO 03/03 Released w/o Limitations [facility]( Sports Medicin e- [facility]) [facility] 26 - [facility]) OUTPATIENT [id number]/ MARLEEN TROY 03/31 Released w/o Limitations [facility]( [facility] 26 - [facility] Home) [facility]) OUTPATIENT [id number] Notes Entered by: Valdez HOUSTON 18 Aug 2018 0811 ------- ------- ------- ------- -- Term MARGIE LOVE 08/18 Released w/o Limitations [facility]( [facility] Conserv [facility]) [facility] 29 - Med [place]) OUTPATIENT [id number] 1 [id number]/ APR/651 .[id number] 45 EUSEBIO ARMSTRONG 08/19 Released w/o Limitations [facility]( [facility] 29 - Med Home) [facility](Op tometry [facility]) OUTPATIENT [id number] 0 eye exam BETITO BAUGH 10/11 Released w/o Limitations [facility]( Optomet ry [facility]) Procedures Combined list of: 1) Procedures [...] 1 VACCINE (SINGLE OR COMBINATION VACCINE/TOXOID) 2013 [facility] FITTING OF SPECTACLES, EXCEPT FOR APHAKIA; MONOFOCAL 2013 [facility] THERAPEUTIC, PROPHYLACTIC, OR DIAGNOSTIC INJECTION (SPECIFY SUBSTANCE OR DRUG); SUBCUTANEOUS OR INTRAMUSCULAR 2013 [facility] OPHTHALMOLOGICAL SERVICES: MEDICAL EXAMINATION AND EVALUATION WITH INITIATION OF DIAGNOSTIC AND TREATMENT PROGRAM; COMPREHENSIVE, NEW PATIENT, 1 OR MORE VISITS 2018 [facility] HEALTH&BEHAV ASSESSMENT (EG, HEALTH-FOC CLINICAL INTERVIEW, BEHAVIORAL OBSERVATIONS, PSYCHOPHYSICOLOGICAL MONITOR, HEALTH-ORIENT QUESTIONNAIRES), EA 15 MIN [id number] W THE PATIENT; INIT ASSESSMENT 2018 [facility] PATIENT EDUCATION, NOT OTHERWISE CLASSIFIED, NON-PHYSICIAN PROVIDER, INDIVIDUAL, PER SESSION 2018 [facility] SCREENING TEST OF VISUAL ACUITY, QUANTITATIVE, BILATERAL 2017 [facility] RE-EVAL,ATHLETIC TRAINING ESTAB PLAN OF CARE REQ:ASSES,CUR FUNC STAT WHEN DOC CHANGE;REV PLAN OF CARE,STAND,ASSESS INSTR &/RAMSEY ASSESS,FUNC OUTCOME W UPDATE,20 MIN [id number] W THE PATIENT &/FAMILY 2017 [facility] PURE TONE AUDIOMETRY (THRESHOLD); AIR ONLY 2017 [facility] INFLUENZA VIRUS VACCINE, QUADRIVALENT (IIV4), SPLIT VIRUS, 0.5 ML DOSAGE, FOR INTRAMUSCULAR USE 2016 [facility] SIMPLE REPAIR OF SUPERFICIAL WOUNDS OF SCALP, NECK, AXILLAE, EXTERNAL GENITALIA, TRUNK AND/OR EXTREMITIES (INCLUDING HANDS AND FEET); 2.5 CM OR LESS 2016 [facility] PURE TONE AUDIOMETRY (THRESHOLD); AIR ONLY 2016 [facility] TYPHOID VACCINE, CAPSULAR POLYSACCHARIDE (VICPS), FOR INTRAMUSCULAR USE 2016 [facility] NEUROPSYC TSTNG(EG,TARA-REINA N NEUROPSYC BARBARA,AIMEE MEMRY SCALES&[place] CARD SORT TST),W QUALIFIED HEALTH CARE PROFSIONAL INTERP&RPT,ADMINISTERED AUTOMATIC PROFILE SANDER OPERATOR,/HR,TECHNICI MAISHA AZEVEDO,FCE-2-FCE 2016 [facility] IMMUNIZATION ADMINISTRATION (INCLUDES PERCUTANEOUS, INTRADERMAL, SUBCUTANEOUS, OR INTRAMUSCULAR INJECTIONS); 1 VACCINE (SINGLE OR COMBINATION VACCINE/TOXOID) 2015 [facility] OPHTHALMOLOGICAL SERVICES: MEDICAL EXAMINATION AND EVALUATION WITH INITIATION OF DIAGNOSTIC AND TREATMENT PROGRAM; COMPREHENSIVE, NEW PATIENT, 1 OR MORE VISITS 2015 [facility] PURE TONE AUDIOMETRY (THRESHOLD); AIR ONLY 2015 [facility] IMMUNIZATION ADMINISTRATION BY INTRANASAL OR ORAL ROUTE; 1 VACCINE (SINGLE OR COMBINATION VACCINE/TOXOID) 2014 [facility] VARICELLA VIRUS VACCINE (JAMESON), LIVE, FOR SUBCUTANEOUS USE 2014 [facility] IMMUNIZATION ADMINISTRATION BY INTRANASAL OR ORAL ROUTE; 1 VACCINE (SINGLE OR COMBINATION VACCINE/TOXOID) 2013 [facility] Ophthalmological New Patient Start Comprehensive Care Ophthalmological New Patient Start Comprehensive Care 72268 2018 BETITO BAUGH Spectacles Services Fitting Monofocal Except For Aphakia Spectacles Services Fitting Monofocal Except For Aphakia 69922 2018 BETITO BAUGH Determination Of Refractive State Determination Of Refractive State 29502 2018 BETITO BAUGH Prescription And Fitting Bilateral Corneal Lenses (Not For Aphakia) Prescription And Fitting Bilateral Corneal Lenses (Not For Aphakia) 29825 2018 BETITO BAUGH Health And Behav A e mt Each 15 Min Initial A e ment Health And Behav Assessmt Each 15 Min Initial Assessment 12930 2018 JOE AC Psychometric Emotional / Behavioral A e ment Psychometric Emotional / Behavioral Assessment 58216 2018 JOE AC Threshold Audiogram (Pure Tone) Automated Threshold Audiogram (Pure Tone) Automated 0208T 2018 MARGIE HARMON [facility] Patient education, not otherwise cla ified, non-physician provider, individual, per se ion 2018 MARGIE HARMON [facility] Preventive Medicine Administration Of Health Risk Questionnaire Patient-Focused Preventive Medicine Administration Of Health Risk Questionnaire Patient-Focused 14940 2017 VINCE ZUNIGA Screening Test Of Visual Acuity, Quantitative, Bilateral Screening Test Of Visual Acuity, Quantitative, Bilateral 20594 2017 VINCE ZUNIGA Athletic Training Re-evaluation Athletic Training Re-evaluation 75519 2017 JUDE TELLO [facility] Athletic Training Evaluation Low Complexity Athletic Training Evaluation Low Complexity 28478 2017 JUDE TELLO [facility] Threshold Audiogram (Pure Tone) Threshold Audiogram (Pure Tone) 77580 2017 MADALYN VIRGEN [facility] Influenza Split Virus Vaccine IM With Preservative Quadrivalent 0.50mL Dosage Influenza Split Virus Vaccine IM With Preservative Quadrivalent 0.50mL Dosage 03349 2016 EUGENE JULIEN Influenza, injectable, quadrivalent; Series #: 1; .5 mL; IM; Left Arm; Mfg: SmithKline; Lot: [id number]; VIS given (Britney: 03/22/2015). DoD Immunization Administration By Injection, One Vaccine Immunization Administration By Injection, One Vaccine 63368 2016 EUGENE JULIEN Threshold Audiogram (Pure Tone) Threshold Audiogram (Pure Tone) 17499 2016 TOLU GARCIA Typhoid Vaccine Vi Capsular Polysaccharide, For Intramus Use Typhoid Vaccine Vi Capsular Polysaccharide, For Intramus Use 56710 2016 DINH ZHENG Typhoid, ViCPs; Series #: 1; .5 mL; IM; Left Arm; Mfg: Sanofi Pasteur; Lot: [id number]. DoD Immunization Administration By Injection, One Vaccine Immunization Administration By Injection, One Vaccine 13356 2016 DINH ZHENG Psychometric Neuropsych Testing Battery Admin By Practice Physician Psychometric Neuropsych Testing Battery Admin By Practice Physician 60448 2016 QUINTON BERNARD [facility] Influenza Split Virus Vaccine IM With Preservative Quadrivalent 0.50mL Dosage 2015 JACEY GUEVARA Influenza, injectable, quadrivalent; Series #: 1; .5 mL; IM; Left Arm; Mfg: SmithWhoisEDIine; Lot: [id number]; VIS given (Britney: 03/22/2015). DoD Immunization Administration By Injection, One Vaccine Immunization Administration By Injection, One Vaccine 00564 2015 JACEY GUEVARA [facility] Ophthalmological New Patient Start Comprehensive Care Ophthalmological New Patient Start Comprehensive Care 43174 2015 BETITO BAUGH Determination Of Refractive State Determination Of Refractive State 31083 2015 BETITO BAUGH Spectacles Services Fitting Monofocal Except For Aphakia Spectacles Services Fitting Monofocal Except For Aphakia 61390 2015 BETITO BAUGH [facility] Threshold Audiogram (Pure Tone) Threshold Audiogram (Pure Tone) 96396 2015 TOLU GARCIA [facility] Influenza Virus Vaccine Live Attenuated Intranasal Quadrivalent Influenza Virus Vaccine Live Attenuated Intranasal Quadrivalent 59619 2014 JUDE CHOPRA Influenza, live, intranasal, quadrivalent; Series #: 1; .2 mL; IN; Intranasal; Mfg: [employer]pers[employer] Technologies.; Lot: [id number]; VIS given (Britney: 03/22/2015). DoD Immunization Admin By Intranasal / Oral Route One Vaccine Immunization Admin By Intranasal / Oral Route One Vaccine 00277 2014 JUDE CHOPRA [facility] Vaccines Viral Varicella (Active) Vaccines Viral Varicella (Active) 34388 2014 CARMELO RDZ [facility] Influenza Virus Vaccine Live Attenuated Intranasal Quadrivalent Influenza Virus Vaccine Live Attenuated Intranasal Quadrivalent 83281 2013 HYACINTH OWENS Influenza, Live, Intranasal Quadrivalent (FluMist); Series #: 1; .2 mL; IN; Intranasal; Mfg: [employer].; Lot: [id number]; VIS given (Britney: 03/10/13). [facility] Immunization Admin By Intranasal / Oral Route One Vaccine Immunization Admin By Intranasal / Oral Route One Vaccine 93763 2013 HYACINTH OWENS [facility] Screening to determine the appropriatene of consideration of an individual for participation in a specified program, project or treatment protocol, per encounter 2013 ERLINDA DUMAS Physician Supervised Injection Intramuscular Antibiotic Physician Supervised Injection Intramuscular Antibiotic 05704 2013 ERLINDA DUMAS Vaccines Viral Yellow Fever Vaccines Viral Yellow Fever 77976 2013 CHRISTOPHER ARITA Varicella (Active) Second Vaccination Varicella (Active) Second Vaccination 04497 2013 CHRISTOPHER ARITA Physician Supervised Injection Intramuscular Antibiotic Physician Supervised Injection Intramuscular Antibiotic 57043 2013 CHRISTOPHER ARITA Immunization Administration By Injection, One Vaccine Immunization Administration By Injection, One Vaccine 30969 2013 CHRISTOPHER ARITA Immunization Administration By Injection, Each Additional Vaccine Immunization Administration By Injection, Each Additional Vaccine 58792 2013 CHRISTOPHER ARITA [facility] Injection, penicillin g benzathine, 100,000 units 2013 CHRISTOPHER ARITA [facility] Vaccines Viral Polio, Inactivated Vaccines Viral Polio, Inactivated 15423 2013 SETH MONTGOMERY Injection, penicillin g benzathine, 100,000 units 2013 SETH MONTGOMERY Physician Supervised Injection Intramuscular Physician Supervised Injection Intramuscular 77042 2013 SETH MONTGOMERY Immunization Administration By Injection, Each Additional Vaccine Immunization Administration By Injection, Each Additional Vaccine 14460 2013 SETH MONTGOMERY Immunization Administration By Injection, One Vaccine Immunization Administration By Injection, One Vaccine 43542 2013 [facility] Hepatitis A And Hepatitis B (Intramuscular Use) Adult Dosage Hepatitis A And Hepatitis B (Intramuscular Use) Adult Dosage 73324 2013 S[facility] [place] Compre ion bandage, roll 2013 DEWAYNE BLAKE APPLIED SHELBY WRAP FOR EDEMA CONTROL DoD Modalities Cryotherapy Cold Packs Modalities Cryotherapy Cold Packs 67363 2013 DEWAYNE BLAKE A isted Exercises For ROM Assisted Exercises For ROM 62869 2013 DEWAYNE BLAKE Compre ion bandage, roll 2013 DEWAYNE BLAKE APPLIED SHELBY WRAP FOR EDEMA CONTROL DoD Modalities Cryotherapy Cold Packs Modalities Cryotherapy Cold Packs 73180 2013 DEWAYNE BLAKE isted Exercises [place] 40554 2013 DEWAYNE BLAKE Compre ion bandage, roll 2013 DEWAYNE BLAKE APPLIED SHELBY WRAP FOR EDEMA CONTROL DoD Modalities Cryotherapy Cold Packs Modalities Cryotherapy Cold Packs 94481 2013 DEWAYNE BLAKE isted Exercises For ROM Assisted [place]ercises [place] ROM 41215 2013 DEWAYNE BLAKE Vaccines Viral Varicella (Active) Vaccines Viral Varicella (Active) 29110 2013 KRISTIN LORENZO Immunization Administration By Injection, One Vaccine Immunization Administration By Injection, One Vaccine 96325 2013 MAURA KRISTIN [facility] Spectacles Services Fitting Monofocal Except For Aphakia Spectacles Services Fitting Monofocal Except For Aphakia 34611 2013 SMITA RMASEY [facility] Ophthalmological New Patient Start Intermediate Level Care Ophthalmological New Patient Start Intermediate Level Care 04734 2013 SMITA RAMSEY [facility] Pneumococcal Polysaccharide Vaccine 23 Valent Intramuscular Pneumococcal Polysaccharide Vaccine 23 Valent Intramuscular 04955 2013 [facility] Tdap Vaccine Seven Years Of Age And Above Tdap Vaccine Seven Years Of Age And Above 89435 2013 [facility] Skin Test Anergy Tuberculin Intradermal Skin Test Anergy Tuberculin Intradermal 81018 2013 [facility] Venipuncture Venipuncture 57150 2013 [facility] Collection Of Capillary Blood Specimen Collection Of Capillary Blood Specimen 96597 2013 [facility] Injection, penicillin g benzathine, 100,000 units 2013 [facility] Physician Supervised Injection Intramuscular Physician Supervised Injection Intramuscular 63947 2013 [facility] Immunization Administration By Injection, One Vaccine Immunization Administration By Injection, One Vaccine 05727 2013 [facility] Meningococcal Polysaccharide Vaccine Meningococcal Polysaccharide Vaccine 02846 2013 [facility] Immunization Administration By Injection, Each Additional Vaccine Immunization Administration By Injection, Each Additional Vaccine 07525 2013 [facility] Hepatitis A And Hepatitis B (Intramuscular Use) Adult Dosage Hepatitis A And Hepatitis B (Intramuscular Use) Adult Dosage 71830 2013 [facility] Social History Combined list of available smoking, tobacco, and other social history from Department of Defense and Veterans Affairs facilities. Social History Type Response Date Comment Sourc e This section is an empty social history section. [employer]
[2024-08-06] MEDS: ONDANSETRON 2 MG/ML inj 4 MG IVP (21:30)
[2024-08-06] MEDS: 0.9 % SODIUM CHLORIDE 500 ML 500 ML IV ×2 (21:30→22:23)
[2024-08-06 21:41] LABS: Basophils Percent Auto 0.2 % (0.0-3.0); Eosinophils Percent Auto 0.8 % (0.0-7.0); Hematocrit 47.4 % (37.0-53.0); Hemoglobin* 16.3 gm/dL (13.5-17.5); Immature Granulocytes Pct Auto 0.1 %; Lymphocytes Percent Auto 3.3 % (20-44); Mean Corpuscular HGB Conc 34 gm/dL (32-36); Mean Corpuscular Hemoglobin 30 pg (26-34); Mean Corpuscular Volume 88 fL (80-100); Monocytes Percent Auto 4.4 % (0.0-11.0); Neutrophils Percent Auto 91.2 % (42.0-72.0); Platelet Count* 262 K/uL (140-440); RDW Coefficient of Variation % 12.2 % (11.5-15.5); Red Blood Count 5.41 m/uL (4.30-5.90); White Blood Count* 11.45 K/uL (4.50-11.00)
[2024-08-06 21:42] LABS: Slide Review Reflex No
[2024-08-06 21:53] LABS: Chloride* 103 mmol/L (96-114); Sodium* 139 mmol/L (135-149)
[2024-08-06 21:54] LABS: Potassium* 4.2 mmol/L (3.6-5.1)
[2024-08-06 21:56] LABS: Anion Gap 10 mEq/L (7-15); Blood Urea Nitrogen* 19 mg/dL (5-24); Carbon Dioxide* 26 mmol/L (20-32); Est. Creatinine Clearance* 130.27; Estimated Glomerular Filt Rate 104 ml/min
[2024-08-06 21:57] LABS: Calcium* 9.8 mg/dL (8.4-10.6); Glucose* 123 mg/dL (60-115)
== END 2024-08-06 22:35 | disposition home or self-care (01) ==
PROVIDERS: Emergency Provider Emergency Medicine Emergency Medical Services; PCP Family Medicine
DX: K52.9 Noninfective gastroenteritis and colitis, unspecified (principal)
CPT/HCPCS: 36415; 80048; 85025; 96361; 96374; 99284; J2405; J7030